=== PATIENT | female | born 1965 | race Hispanic/Latino ===

== ENCOUNTER 2017-08-28 12:43 | Outpatient (CLI) | payer MEDICARE, MEDICAID | END 2017-08-28 12:44 | disposition home or self-care (01) | LOC: BICULT 12:43 | PROVIDERS: ATTEND Urology | DX: N31.8 Other neuromuscular dysfunction of bladder (principal); N32.89 Other specified disorders of bladder | CPT/HCPCS: 76770 ==

== ENCOUNTER 2017-09-16 10:41 | Outpatient (CLI) | payer MEDICARE, MEDICAID ==
--- NOTE | 2017-09-16 13:26 | CT ---
CT OF THE BRAIN WITHOUT CONTRAST: Date: 09/16/17 COMPARISON: None. HISTORY: Large lump in right side of head since March 2017 that is getting larger. TECHNIQUE: Multiple contiguous axial images were obtained in a CT of the brain without contrast. FINDINGS: The patient has a right posterior approach ventriculostomy catheter. The catheter tubing may be disco ntiguous from its exit through the calvarium. Surrounding this likely discontiguous shunt catheter, t here is a well circumscribed fluid density collection measuring 9.3 cm in greatest dimension. There is no evidence of hydrocephalus or intracranial hemorrhage. No large confluent infarction is se en. The visualized paranasal sinuses and mastoid air cells are well aerated. IMPRESSION: There is a large fluid collection surrounding the patient's WASH DRILLER shunt, which is likely discontiguous. A shunt series is recommended to evaluate the shunt in its entirety. POS: WILFREDO
== END 2017-09-16 10:42 | disposition home or self-care (01) ==
LOC: TBSIIMAG 10:41
PROVIDERS: ATTEND Neurological Surgery
DX: R22.0 Localized swelling, mass and lump, head (principal); Z98.2 Presence of cerebrospinal fluid drainage device
CPT/HCPCS: 70450

== ENCOUNTER 2017-10-03 11:56 | Outpatient (CLI) | payer MEDICARE, OTHER | END 2017-10-03 11:57 | disposition home or self-care (01) | LOC: BICCT 11:56 | PROVIDERS: ATTEND Neurological Surgery | DX: Q05.2 Lumbar spina bifida with hydrocephalus (principal); Z98.2 Presence of cerebrospinal fluid drainage device | CPT/HCPCS: 70490; 71250 ==

== ENCOUNTER 2017-11-05 09:49 | Outpatient (CLI) | payer MEDICARE, MEDICAID ==
[2017-11-05 10:40] LABS: INR-International Normal Ratio 1.1
[2017-11-05 10:41] LABS: PTT 30.5 SEC (22.9-36.1)
[2017-11-05 10:49] LABS: BHCG - Serum Negative (NEGATIVE)
[2017-11-05 10:50] LABS: Pregs Control Background? CLEAR/WHITE (CLR/WHITE); Pregs Control Bar Appear? YES (CONTROL BAR)
[2017-11-05 11:06] LABS: Hemoglobin 9.6 g/dL (12.0-16.0); Mean Corpuscular HGB CONC 31.6 g/dL (32.0-36.0); Mean Corpuscular Hemoglobin 20.5 pg (27.0-31.0); Mean Corpuscular Volume 64.9 fl (81.0-99.0); Mean Platelet Volume 5.7 fL (7.4-10.4); Platelet Count 208 thou/uL (130-400); Red Blood Cell (RBC) Count 4.67 mill/uL (4.20-5.40); White Blood Cell (WBC) Count 7.4 thou/uL (4.8-10.8)
--- NOTE | 2017-11-05 23:54 | EKG ---
Test Reason : Blood Pressure : / mmHG Vent. Rate : 059 BPM Atrial Rate : 059 BPM P-R Int : 138 ms QRS Dur : 078 ms QT Int : 400 ms P-R-T Axes : 044 005 034 degrees QTc Int : 396 ms Sinus bradycardia Otherwise normal ECG When compared with ECG of 13-DEC-2008 09:16, No significant change was found Confirmed by Leonardo PENALOZA ([id number]) on 11/05/2017 11:53:51 PM Referred By: HARMAN Confirmed By:Leonardo PENALOZA
== END 2017-11-05 09:50 | disposition home or self-care (01) ==
LOC: LABBT 09:49
PROVIDERS: ATTEND Neurological Surgery
DX: Z01.818 Encounter for other preprocedural examination (principal); G91.9 Hydrocephalus, unspecified
CPT/HCPCS: 84703; 85027; 85610; 85730; 93005; 93010

== ENCOUNTER 2017-11-05 10:30 | Inpatient (IN) | payer MEDICARE, OTHER ==
[2017-11-05 10:17] VITALS: BMI 27.4
--- NOTE | 2017-11-07 11:45 | HP ---
REASON FOR ADMISSION: Shunt malfunction. HISTORY OF PRESENT ILLNESS: Ms. James was referred to our [facility]surgery [facility] for growing fluid col lection over her right posterior parietal shunt. The shunt is evidently not working as there is CSF collected under the scalp and it is a significant amount. She is here for revision of that shunt. PAST MEDICAL HISTORY: Asthma, kidney stones, myelomeningocele with shunting, hypertension, anemia, g astroesophageal reflux, osteoarthritis, uterine prolapse. PAST SURGICAL HISTORY: DOUBLE END TRIMMER shunt, myelomeningocele repair, kidney stones, EGD, parathyroid surgery, s kin graft, wound revision surgery. MEDICATIONS: Vitamin D, fluticasone, proprionate, sertraline, promethazine, codeine, ProAir HBA inha ler, hydrochlorothiazide, azithromycin, Lamisil, Nystatin, Meloxicam, tramadol, ibuprofen. ALLERGIES: PENICILLIN causes rash. SOCIAL HISTORY: Ms. James lives with her family. She is single. She is a nondrinker and not a shawn g user. She is a nonsmoker. FAMILY HISTORY: Mother has hypertension. Father from cancer. No history of myelomeningocele i n the family. REVIEW OF SYSTEMS: Otherwise negative. PHYSICAL EXAMINATION: GENERAL: Ms. James is awake and alert. She is densely paraparetic from her myelomeningocele. NEURO: Cranial nerves are all intact. Upper extremities work well. Alternating rapid motions are p erformed rapidly and smoothly. There is no truncal ataxia. SCALP: Scalp examination reveals a fluctuant fluid collection over her posterior parietal shunt. ASSESSMENT: Shunt malfunction. PLAN: Shunt revision. Admission overnight at least and discharge when she is safe for activities of daily living.
[2017-11-07] MEDS ORDERED: Vancomycin HCl 20 MG, Gentamicin (PEDI) 8 MG, Admixture Fee 1 EACH in Sodium Chloride 0... FS ONE (13:00)
[2017-11-07] MEDS ORDERED: Thrombin 5000 UNITS/5 ML VIAL ONE (13:22)
[2017-11-07] MEDS ORDERED: Bupivacaine/Epinephrine 0.25% 30 ML VIAL ONE (13:22)
[2017-11-07] MEDS ORDERED: Gentamicin 80 MG/2 ML VIAL ONE (13:22)
[2017-11-07] MEDS ORDERED: Lidocaine 0.5%/Epinephrine 1:200,000 50 ml Vial ONE (13:22)
[2017-11-07] MEDS ORDERED: Sodium Chloride 0.9% 10 ML ONE (13:22)
[2017-11-07] MEDS ORDERED: Fentanyl 100 MCG/2 ML VIAL ONE ×4 (13:44→17:44)
[2017-11-07] MEDS ORDERED: Dexamethasone 20 MG/5 ML VIAL ONE (15:22)
[2017-11-07] MEDS ORDERED: Lidocaine 1% PF 5 ML VIAL ONE (15:22)
[2017-11-07] MEDS ORDERED: PROPOFOL 200 MG/20 ML VIAL ONE (15:22)
[2017-11-07] MEDS ORDERED: Ondansetron PF 4 MG/2 ML Vial ONE (15:22)
[2017-11-07] MEDS ORDERED: SUGAMMADEX SODIUM 200 MG/2 ML VIAL ONE (16:17)
[2017-11-07] MEDS ORDERED: Ondansetron PF 4 MG/2 ML Vial IVP PRN (16:31)
[2017-11-07] MEDS ORDERED: Promethazine 25 MG TAB PO PRN (16:31)
[2017-11-07] MEDS ORDERED: Promethazine HCl 12.5 MG SUPP PR PRN (16:31)
[2017-11-07] MEDS ORDERED: Promethazine HCl 25 MG/ML VIAL IM PRN ×2 (16:31→16:49)
[2017-11-07] MEDS ORDERED: Ondansetron HCl/PF 4 MG/2 ML Vial IVP PRN (16:49)
[2017-11-07] MEDS ORDERED: Promethazine HCl 25 MG/ML VIAL SLOW IVP PRN (16:49)
[2017-11-07] MEDS ORDERED: Morphine 4 MG/ML VIAL SLOW IVP PRN (17:00)
--- NOTE | 2017-11-07 17:38 | OP ---
DATE OF OPERATION: 11/07/2017 NEUROSURGERY OPERATIVE NOTE SURGEON: Manuel Soriano M.D. BUNCH MAKER: Donna Steele PA-C. CO-SURGEON: Humberto Kaplan M.D. for laparoscopic placement of peritoneal catheter. PREOPERATIVE INDICATION: Prevent neurological deterioration. PREOPERATIVE DIAGNOSES: Ventriculoatrial shunt malfunction with CSF collection under the scalp and a large pseudomeningocele. POSTOPERATIVE DIAGNOSES: Ventriculoatrial shunt malfunction with CSF collection under the scalp and a large pseudomeningocele. OPERATIVE PROCEDURE: Exploration of ventriculoatrial shunt, removal of jugular venous catheter, plac ement of new Delta 1 valve, placement of new peritoneal catheter with laparoscopic assistance, tissue reduction posterior inferior parietal scalp. PREOPERATIVE MEDICATION: Vancomycin 1 gram IV. DRAIN NUMBER: Zero. DRAIN TYPE: None. OPERATIVE DICTATION: The patient was brought to the operating room. General endotracheal anesthesia was induced. The patient's head was turned to the left and supported by gel-filled donut shaped hea d rest. The right shoulder was slightly bumped. We removed hair from the scalp and the inferior par ietal occipital region. There is a large pseudomeningocele filled the CSF under the previous shunt i ncision. We sterilely prepped and draped the entire posterior portion of the right scalp, the right neck, the chest and the abdomen. We prepped out the ostomy bag under the drapes. We opened the port ion of her previous shunt incision that was over her pseudomeningocele and immediately entered the CS F. We evacuated about 340-350 mL of CSF and found a bur hole reservoir with CSF emanated freely from it. There was no valve connected. There was no distal catheter connected. We looked around the ps eudomeningocele in all directions and saw no catheter. We then opened at the neck and found the cerv ical portion of the ventriculoatrial shunt. We dissected medial to the sternocleidomastoid and start ed following it towards the jugular from the exposed end. We tried to assess the pressure needed to create flow, but there was no flow whatsoever. This part of the catheter was useless. It was remove d and there was no significant bleeding at all. We then tunneled a pathway from the cranial incision all the way to the subxiphoid abdominal wall and opened the skin incision there. We passed a ventri cular catheter from the cranial incision to our abdominal incision and removed the shunt passer. We then connected the Delta 1 inline valve with its distal connection connected to a peritoneal catheter . The proximal portion was inserted into the tube leading out of the bur hole reservoir and both con nections were reinforced with 0 silk ties. We pumped our valve and there was CSF emanating distally. We irrigated copiously with bacitracin irrigation. Dr. Kaplan scrubbed in the case. As Dr. Kaplan performed a laparoscopic assisted placement of the peritoneal portion of the shunt cat heter, we reduced tissue in the pseudomeningocele. We did this by cutting and riding over the previo us incision and created an ellipse of tissue that was removed. The total measurements of the tissue removed were 10 cm x 3-4 cm. We controlled bleeding with gentle bipolar cautery. We irrigated with bacitracin irrigation. We closed the cranial incision with vertical mattress 2-0 nylon sutures and r eapproximated it quite well. We closed the neck incision with a running subcuticular and Dr. Kaplan was kind enough to close the abdominal incisions. We applied sterile dressings in all the incisions . This was a clean case. No contamination.
--- NOTE | 2017-11-07 18:03 | OP ---
DATE OF PROCEDURE: 11/07/2017 PREOPERATIVE DIAGNOSES: Ventriculoperitoneal shunt malfunction, history of myelomeningocele repair. POSTOPERATIVE DIAGNOSES: Ventriculoperitoneal shunt malfunction, history of myelomeningocele repair. PROCEDURE: Laparoscopic placement of permanent abdominal drain. SURGEON: Humberto Kaplan MD ANESTHESIA: General. ESTIMATED BLOOD LOSS: Minimal. COMPLICATIONS: None. SPECIMEN: None. FINDINGS: The tip of the UTILIZATION SPECIALIST shunt is placed over the rib through the falciform under direct vision. PROCEDURE IN DETAIL: The patient was taken to the operating room and placed supine on the table. Af ter general anesthetic was obtained, her right head was shaved per Neurosurgery. Her head, chest, ab domen were all prepped and draped in a sterile fashion. Dr. Soriano performed excision of redundan t skin to the scalp and the upper portion of the UTILIZATION SPECIALIST shunt. The tubing was tunneled down to and incis ion made at the xiphoid. I placed a left subcostal 5-mm Optiview trocar into the abdomen under direc t vision without injury and high-flow pneumoperitoneum was obtained. A left abdominal 5-mm port was placed under direct visualization. The UTILIZATION SPECIALIST shunt tubing was passed into the abdominal cavity through a small hole made by the 5-mm laparoscopic trocar. The tubing was grasped and placed up over the hali er. No injury to any intra-abdominal structures. All port sites were infiltrated using local anesth etic. Dr. Soriano then finished the cranial part of the procedure. All redundancy was pulled out of the tubing. Ports were removed under camera visualization. Pneumoperitoneum was let down and inc isions were all closed using 4-0 Monocryl and Dermabond. The patient was en route to recovery in sta ble condition. All instrument counts, needle counts, lap counts were correct.
[2017-11-07] MEDS: Sodium Chloride 0.9% 1,000 ML IV SCH (20:04)
[2017-11-08] MEDS: Vancomycin HCl 1 GM in Premix Bag 1 BAG IVPB SCH ×2 (00:05→13:00)
[2017-11-08] MEDS ORDERED: PROVENTIL INHALER 6.7 G (200 INHALATIONS) INH SCH (06:30)
[2017-11-08] MEDS: Sodium Chloride 0.9% 1,000 ML IV SCH (06:53)
--- NOTE | 2017-11-08 07:16 | PRG ---
DATE OF SERVICE: 11/08/2017 Ms. James is 1 day out from a revision of her cerebrospinal fluid shunt. We removed jugular venous catheter of her VA shunt because it was disconnected from the reservoir and ventricular catheter in h er brain. That reservoir and ventricular catheter were producing a significant amount of CSF during surgery and did not need to be replaced. We gave Ms. James a new valve and tunneled the peritoneal catheter with the assistance of General Surgery into the peritoneum. We reduced the size of the redu ndant tissue on the scalp by ellipsing out some tissue and tightening her scalp and she tolerated all the procedures well. Overnight, Mr. James has returned to his normal neurological function. Her vital signs are stable. Her neurological examination is as well. We went over wound care for her at home. Follow up arradriano wagner will be made in our office. She is ready for discharge.
[2017-11-08 08:01] VITALS: BP 125/77
[2017-11-08] MEDS ORDERED: Lisinopril/Hydrochlorothiazide 10 mg/12.5 mg Tablet PO SCH (09:00)
[2017-11-08 11:47] VITALS: TEMP 98.5
== END 2017-11-08 15:08 | disposition home or self-care (01) | DRG 32 ==
LOC: SURG A 11-07 12:08 → SJJU 11-07 19:32
PROVIDERS: ADMIT Neurological Surgery; ATTEND Neurological Surgery
PROC: 00W60JZ Revision of Synthetic Substitute in Cerebral Ventricle, Open Approach (ICD-10-PCS; principal; 2017-11-07)
PROC: 00164J6 Bypass Cerebral Ventricle to Peritoneal Cavity with Synthetic Substitute, Percutaneous Endoscopic Approach (ICD-10-PCS; 2017-11-07)
PROC: 0WJG4ZZ Inspection of Peritoneal Cavity, Percutaneous Endoscopic Approach (ICD-10-PCS; 2017-11-07)
PROC: 0HB0XZZ Excision of Scalp Skin, External Approach (ICD-10-PCS; 2017-11-07)
DX: T85.02XA Displacement of ventricular intracranial (communicating) shunt, initial encounter (principal); G82.20 Paraplegia, unspecified; G91.9 Hydrocephalus, unspecified; J45.909 Unspecified asthma, uncomplicated; I10 Essential (primary) hypertension; K21.9 Gastro-esophageal reflux disease without esophagitis; G96.19 Other disorders of meninges, not elsewhere classified; Z88.0 Allergy status to penicillin; Z79.899 Other long term (current) drug therapy; Y83.8 Other surgical procedures as the cause of abnormal reaction of the patient, or of later complication, without mention of misadventure at the time of the procedure; Z01.818 Encounter for other preprocedural examination
CPT/HCPCS: 84703; 85027; 85610; 85730; 93005; 93010; J1100; J1580; J2001; J2270; J2405; J2550; J2704; J3010; J3370

== ENCOUNTER 2018-09-16 13:18 | Outpatient (CLI) | payer MEDICARE, MEDICAID ==
--- NOTE | 2018-09-16 14:35 | MMO ---
Bilateral MAMMO Bilat Screen [facility]. CLINICAL HISTORY: Patient is 53 years old and is seen for screening. The patient has no family history of breast cancer. The patient has no personal history of cancer. VIEWS: The views performed were: bilateral craniocaudal with tomosynthesis and bilateral mediolateral oblique with tomosynthesis. FILMS COMPARED: The present examination has been compared to prior imaging studies performed at [facility] on 09/06/2011 and 09/08/2012. MAMMOGRAM FINDINGS: There are scattered fibroglandular densities. There are no suspicious masses, suspicious calcifications, or new areas of architectural distortion. IMPRESSION: THERE IS NO MAMMOGRAPHIC EVIDENCE OF MALIGNANCY. A ROUTINE FOLLOW-UP MAMMOGRAM IN 1 YEAR IS RECOMMENDED. THE RESULTS OF THIS EXAM WERE SENT TO THE PATIENT. ACR BI-RADS Category 1 - Negative MAMMOGRAPHY NOTE: 1. A negative mammogram report should not delay a biopsy if a dominant of clinically suspicious mass is present. 2. Approximately 10% to 15% of breast cancers are not detected by mammography. 3. Adenosis and dense breasts may obscure an underlying neoplasm.
== END 2018-09-16 13:19 | disposition home or self-care (01) ==
LOC: BICMAMMO 13:18
PROVIDERS: ATTEND Family Medicine
DX: Z12.31 Encounter for screening mammogram for malignant neoplasm of breast (principal)
CPT/HCPCS: 77063; 77067

== ENCOUNTER 2019-11-27 12:31 | Outpatient (CLI) | payer MEDICARE, OTHER ==
--- NOTE | 2019-11-27 13:01 | ULT ---
US Renal Bilateral STANDARD: 11/27/2019 12:00 AM CLINICAL HISTORY: Neuromuscular dysfunction of the urinary bladder. STUDY: Renal ultrasound COMPARISON: None. FINDINGS: Right kidney: Echogenicity: Normal. Masses/cysts: None. Hydronephrosis: None. Calcifications: None. Length: 11.3 cm Left kidney: Echogenicity: Normal. Masses/cysts: None. Hydronephrosis: None. Calcifications: None. Length: 9.8 cm The urinary bladder is not visualized on this exam IMPRESSION: Unremarkable renal ultrasound
== END 2019-11-27 12:32 | disposition home or self-care (01) ==
LOC: BICULT 12:31
PROVIDERS: ATTEND Urology
DX: N31.9 Neuromuscular dysfunction of bladder, unspecified (principal)
CPT/HCPCS: 76770

== ENCOUNTER 2020-06-22 13:05 | Outpatient (CLI) | payer MEDICARE, OTHER ==
--- NOTE | 2020-06-22 13:34 | MMO ---
Bilateral MAMMO Bilat Screen [facility]. CLINICAL HISTORY: Patient is 55 years old and is seen for screening. The patient has no family history of breast cancer. The patient has no personal history of cancer. VIEWS: The views performed were: bilateral craniocaudal with tomosynthesis and bilateral mediolateral oblique with tomosynthesis. FILMS COMPARED: The present examination has been compared to prior imaging studies performed at [facility] on 09/06/2011, 09/08/2012 and 09/16/2018. This study has been interpreted with the assistance of computer-aided detection. MAMMOGRAM FINDINGS: There are scattered fibroglandular densities. There are no suspicious masses, suspicious calcifications, or new areas of architectural distortion. IMPRESSION: THERE IS NO MAMMOGRAPHIC EVIDENCE OF MALIGNANCY. A ROUTINE FOLLOW-UP MAMMOGRAM IN 1 YEAR IS RECOMMENDED. THE RESULTS OF THIS EXAM WERE SENT TO THE PATIENT. ACR BI-RADS Category 1 - Negative MAMMOGRAPHY NOTE: 1. A negative mammogram report should not delay a biopsy if a dominant of clinically suspicious mass is present. 2. Approximately 10% to 15% of breast cancers are not detected by mammography. 3. Adenosis and dense breasts may obscure an underlying neoplasm. Reported by: NAVEED KHAN MD Electonically Signed: [id number]
== END 2020-06-22 13:06 | disposition home or self-care (01) ==
LOC: BICMAMMO 13:05
PROVIDERS: ATTEND Family Medicine
DX: Z12.31 Encounter for screening mammogram for malignant neoplasm of breast (principal)
CPT/HCPCS: 77063; 77067

== ENCOUNTER 2023-04-02 12:19 | Outpatient (CLI) | payer OTHER | END 2023-04-02 12:20 | disposition home or self-care (01) | LOC: BICMAMMO 12:19 | PROVIDERS: ATTEND Family Medicine | DX: Z12.31 Encounter for screening mammogram for malignant neoplasm of breast (principal) | CPT/HCPCS: 77063; 77067 ==